=== PATIENT | female | born 1940 | race Caucasian/White ===

== ENCOUNTER 2016-11-06 08:18 | Emergency (ER) | payer OTHER ==
[~2016-11-06] VITALS: Ht 157.5 cm; Wt 78.0 kg
[~2016-11-06 08:18] MED LIST: 1-ME1LIQ PO; LEVO100T60 PO; LOVA40TA PO; TEMA15 PO
[2016-11-06 08:25] VITALS: BP 139/87; PULSE 70; RESP 16; TEMP 98.5; O2SAT 95
[2016-11-06] MEDS ORDERED: VITA10007 PO (08:50)
[2016-11-06] MEDS ORDERED: TIZA2CAP3 PO (08:50)
[2016-11-06] MEDS ORDERED: VITA400C2 PO (08:50)
[2016-11-06] MEDS ORDERED: LEVO100T5 PO (08:50)
[2016-11-06] MEDS ORDERED: LISI10TA3 PO (08:50)
[2016-11-06] MEDS ORDERED: OMEG100037 PO (08:50)
[2016-11-06] MEDS ORDERED: VITATAB11 PO (08:50)
[2016-11-06] MEDS ORDERED: BIOT1SUB SL (08:50)
[2016-11-06] MEDS ORDERED: VITA2000 PO (08:50)
[2016-11-06] MEDS ORDERED: OMEG100010 PO (08:50)
[2016-11-06] MEDS ORDERED: KETOROLAC TROMETHAMINE 60 MG/2 ML (IM) VIAL IM ONE (09:00)
--- NOTE | 2016-11-06 09:17 | PD ---
HPI Chief Complaint: Pain: Acute or Chronic Time Seen by Provider: 08:47 Travel History International Travel<30 days: No Contact w/Intl Traveler<30days: No Traveled to known affect area: No History of Present Illness HPI 76-year-old female presents with one-month history of joint pain. She states she had pain first on her right elbow than her left hand then her right shoulder and the pain is difficult to control. She states her primary care physician wrote her a muscle relaxant but it is not helping. She states she is not taking anything else currently for the pain. She states she has no issues with GI bleeding or ulcers that she is aware of. Quality of pain is sharp. Severity is worsening. Pain is worse with movement. She denies other modifying factors. She denies other concurrent complaints other than swelling intermittently to her left thumb. She states her primary doctor referred her to a cardiology tech and she has an appointment Friday. She states she is here for pain control. PFSH Past Medical History Arthritis: Yes (HANDS) Heart Rhythm Problems: No Cardiac Catheterization: Yes (X 2) Cardiovascular Problems: Yes (stents) High Cholesterol: Yes Chest Pain: Yes Congestive Heart Failure: No Diabetes: No Hepatitis: No Hypertension: Yes Sleep Apnea: Yes Thyroid Disease: Yes (HYPO) ?: Not Menopausal: Yes Past Surgical History Coronary Artery Bypass Graft: No Coronary Stent: Yes Genitourinary Surgery: Yes (1983 BLADDER SUSPENSION) Oral Surgery: Yes (TONSIL;) Pacemaker: No Tonsillectomy: Yes Other Surgery: Yes Social History Alcohol Use: Yes (2XWEEK) Tobacco Use: Yes (1986) Substance Use: Yes Allergies-Medications (Allergen,Severity, Reaction): Coded Allergies: No Known Allergies (Verified , 11/06/16) Reported Meds & Prescriptions Reported Meds & Active Scripts Active Reported [place] 3 1000 mg ([place]-3 Fatty Acids) 1 Cap Cap 1 Cap PO DAILY Fish Oil 1000 mg ([place]-3 Fatty Acids) 1 Cap Cap 1 Cap PO DAILY Vitamin B Complex (B-Complex Vitamins) 1 Tab 1 Tab PO DAILY Vitamin C (Ascorbic Acid) 1,000 Mg Tab 1,000 Mg PO DAILY Vitamin D3 (Cholecalciferol) 2,000 Unit Cap 2,000 Units PO DAILY Vitamin E 400 Unit Cap 400 Units PO DAILY Biotin 5,000 Mcg Subl 10,000 Mcg SL Lisinopril 10 Mg Tab 10 Mg PO DAILY Levothyroxine (Levothyroxine Sodium) 100 Mcg Tab 100 Mcg PO DAILY Tizanidine (Tizanidine HCl) 2 Mg Cap 2 Mg PO Q6HR Review of Systems Except as stated in HPI: all other systems reviewed are Neg Physical Exam Narrative GENERAL: Well-nourished, well-developed patient. SKIN: Warm and dry. HEAD: Normocephalic and atraumatic. EYES: No injection or drainage. ENT: No nasal drainage noted. NECK: Supple, trachea midline. CARDIOVASCULAR: Regular rate and rhythm RESPIRATORY: No increased effort. No accessory muscle use. EXTREMITIES:Pain with palpation of left thumb with mild swelling, mild palpation of right elbow without swelling, no pain with other joints with specific palpation , neurovascularly intact, no lacerations over, compartments soft. No specific edema NEUROLOGICAL: Awake and alert. Motor and sensory grossly within normal limits. Normal speech. Data Data Last Documented VS Vital Signs Date Time Temp Pulse Resp B/P Pulse Ox O2 Delivery O2 Flow Rate FiO2 11/06/16 08:25 98.5 70 16 139/87 95 Orders Ketorolac Inj (Toradol Inj) (11/06/16 09:00) [facility] Medical Decision Making Medical Screen Exam Complete: Yes Emergency Medical Condition: Yes Medical Record Reviewed: Yes (past history confirmed) Differential Diagnosis Rheumatoid arthritis, osteoarthritis, strain... Narrative Course Patient agrees to no further workup here given she had 6 vials of blood drawn as an outpatient recently for referral, given no trauma she agrees to imaging as an outpatient. I will provide her with an injection of Toradol here for pain control and she is happy with this and will take [id number] anti- inflammatory and Tylenol at home. Given return instructions. Diagnosis Primary Impression: Joint pain Qualified Code: M25.50 - Arthralgia, unspecified joint Patient Instructions: General Instructions Additional Instructions: alternate motrin and tylenol, return as needed, follow with cardiology tech as scheduled Med/Other Pt SpecificInfo: No Change to Meds Disposition: 01 DISCHARGE HOME Condition: Stable Adry Montes De Oca MD Nov 06, 2016 09:17
== END 2016-11-06 09:32 | disposition home or self-care (01) ==
LOC: PHED 08:18
DX: M25.50 Pain in unspecified joint (principal); E78.00 Pure hypercholesterolemia, unspecified; I10 Essential (primary) hypertension; E03.9 Hypothyroidism, unspecified
CPT/HCPCS: 96372; 99283; J1885

== ENCOUNTER → 2017-07-11 | Day surgery (SDC) | payer OTHER ==
[~2017-07-11] MED LIST changes: -1-ME1LIQ PO; +BIOT1SUB SL; +BUPIVACAINE/EPINEPHRINE 0.5% PF 10 ML VIAL ONE; +IOHEXOL 180 MG/ML 20 ML VIAL (for RAD DIAG) OTHER ONE; +KETOROLAC TROMETHAMINE 30 MG/ML (IVP) VIAL IV PUSH ONE; +LACTATED RINGER'S 1000 ML INJ 1,000 ML ONE; +LEVO100T5 PO; -LEVO100T60 PO; +LIDOCAINE 1.5%/EPINEPHrine 1:200,000 PF SOLN 30 ML AMP ONE; +LISI10TA3 PO; -LOVA40TA PO; +MIDAZOLAM HCL 2 MG/2 ML VIAL ONE; +OMEG100010 PO; +OMEG100037 PO; +ONDANSETRON HCL 4 MG/2 ML VIAL IV PUSH ONE; +PROPOFOL 500 MG/50 ML BTL IV ONE; -TEMA15 PO; +TIZA2CAP3 PO; +VITA10007 PO; +VITA2000 PO; +VITA400C2 PO; +VITATAB11 PO; +ceFAZolin 2 GM PREMIX 50 ML ONE
--- NOTE | 2017-07-11 15:09 | TN ---
cc: DELICIA ALONSO DATE OF SURGERY: 07/11/2017 PREOPERATIVE DIAGNOSIS Compression fracture T11-L5 subacute. POSTOPERATIVE DIAGNOSIS Compression fracture T11-L5, subacute. PROCEDURE Kyphoplasty of T11 and L5. SURGEON Delicia Alonso MD. ANESTHESIA TIVA. BLOOD LOSS 50 cc. INDICATION This patient is a 76-year-old female with progressive pain in her back in studies showing evidence of recent compression fractures of T11-L5. Despite conservative care the patient is painful and symptomatic. This patient presents for surgical treatment. PROCEDURE The patient brought to the operating room and given limited sedation. She was rolled to prone position. All pressure points checked in the back was scrubbed alcohol followed by Hibiclens followed Chloraprep and draped sterilely. Antibiotics were given within 1 hour time window a time-out was done. A single balloon approach utilizing left side at T11 level. A sequence of a small incision. Local anesthesia, small incision. An awl placed down through the pedicle and into the vertebral body at oblique angle. A 20 mm Kyphon balloon was placed centrally at the T11 level and elevated. Using the same type system. The same approach from the left side of L5, a single balloon was placed centrally. On the back table methacrylate was mixed and was injected both levels. We began having some cement extravasating anteriorly at T11 so it was stopped for about four minutes and then the rest of the vertebral body was filled without consequence. Overall we had a good fill both levels. The areas were irrigated, anesthetized and closed with 4-0 Vicryl followed by Dermabond. The patient was awakened and taken to the Recovery Room in satisfactory condition. Delicia Alonso MD [facility] [place]/ /2:55 PM /3:04 PM
== END | disposition home or self-care (01) ==
LOC: ESDC 12:20
PROVIDERS: ATTEND Orthopaedic Surgery Orthopaedic Surgery of the Spine
DX: S22.080A Wedge compression fracture of T11-T12 vertebra, initial encounter for closed fracture (principal); S32.050A Wedge compression fracture of fifth lumbar vertebra, initial encounter for closed fracture
CPT/HCPCS: 01936; 22513; 22515; 72070; J0690; J1885; J2250; J2405; J3010; J7120; Q9965

== ENCOUNTER 2017-08-14 12:28 | Emergency (ER) | payer OTHER ==
[~2017-08-14] VITALS: Ht 165.1 cm; Wt 77.0 kg
[~2017-08-14 12:28] MED LIST changes: -BUPIVACAINE/EPINEPHRINE 0.5% PF 10 ML VIAL ONE; -IOHEXOL 180 MG/ML 20 ML VIAL (for RAD DIAG) OTHER ONE; -KETOROLAC TROMETHAMINE 30 MG/ML (IVP) VIAL IV PUSH ONE; -LACTATED RINGER'S 1000 ML INJ 1,000 ML ONE; -LIDOCAINE 1.5%/EPINEPHrine 1:200,000 PF SOLN 30 ML AMP ONE; -MIDAZOLAM HCL 2 MG/2 ML VIAL ONE; -ONDANSETRON HCL 4 MG/2 ML VIAL IV PUSH ONE; -PROPOFOL 500 MG/50 ML BTL IV ONE; -ceFAZolin 2 GM PREMIX 50 ML ONE
[2017-08-14 12:40] VITALS: BP 147/85; PULSE 89; RESP 18; TEMP 99.4; O2SAT 96
[2017-08-14] MEDS ORDERED: OXYC1TAB63 PO (13:59)
[2017-08-14] MEDS ORDERED: ONDANSETRON ODT 4 MG TAB PO ONE (14:00)
[2017-08-14] MEDS ORDERED: MORPHINE SULFATE 4 MG/ML INJ IM ONE (14:00)
--- NOTE | 2017-08-14 14:12 | PD ---
HPI . Back pain Chief Complaint: Back/ Neck Pain or Injury Time Seen by Provider: 13:58 Travel History International Travel<30 days: No Contact w/Intl Traveler<30days: No Traveled to known affect area: No History of Present Illness HPI Patient presents with chief complaint of back pain. Onset was about a month ago. She has reportedly suffered a series of compression fractures. She states that she will have 1 or 2 repaired and will then suffer another one or 2. She states that her pain has become acutely worse since yesterday. The pain waxes and wanes. The pain is exacerbated by movement. At its maximum, the pain is very severe. It is somewhat relieved by oxycodone. She states that she presented to us here today because she was hoping to be admitted to the hospital for emergency surgery. She reports that she is scheduled for outpatient surgery on Friday which is 4 days from now. She is not having any neurological symptoms. She is not running fever. PFSH Past Medical History Arthritis: Yes (HANDS) Heart Rhythm Problems: No Cardiac Catheterization: Yes (X 2) Cardiovascular Problems: Yes (stents) High Cholesterol: Yes Chest Pain: Yes Congestive Heart Failure: No Diabetes: No Hepatitis: No Hypertension: Yes Musculoskeletal: Yes (COMPRESSION FRACTURES/CHRONIC BACK PAIN) Sleep Apnea: Yes Thyroid Disease: Yes (HYPO) Menopausal: Yes Past Surgical History Coronary Artery Bypass Graft: No Coronary Stent: Yes Genitourinary Surgery: Yes (1983 BLADDER SUSPENSION) Oral Surgery: Yes (TONSIL;) Pacemaker: No Tonsillectomy: Yes Other Surgery: Yes Social History Alcohol Use: Yes (2XWEEK) Tobacco Use: Yes (1986) Substance Use: No Allergies-Medications (Allergen,Severity, Reaction): Coded Allergies: No Known Allergies (Verified , 11/06/16) Reported Meds & Prescriptions Reported Meds & Active Scripts Active Reported Oxycodone-Acetaminophen 5-325 mg Tab 2 Tab PO Q6H PRN [place] 3 1000 mg ([place]-3 Fatty Acids) 1 Cap Cap 1 Cap PO DAILY Vitamin B Complex (B-Complex Vitamins) 1 Tab 1 Tab PO DAILY Vitamin D3 (Cholecalciferol) 2,000 Unit Cap 2,000 Units PO DAILY Lisinopril 10 Mg Tab 10 Mg PO DAILY Levothyroxine (Levothyroxine Sodium) 100 Mcg Tab 100 Mcg PO DAILY Tizanidine (Tizanidine HCl) 2 Mg Cap 2 Mg PO Q6HR Review of Systems Except as stated in HPI: all other systems reviewed are Neg General / Constitutional: No: Fever, Chills Musculoskeletal: Positive: Pain Neurologic: No: Paresthesia, Incontinence Physical Exam Narrative GENERAL: Patient is sitting in a wheelchair. She has an emesis basin in her lap. It is empty. SKIN: Warm and dry. HEAD: Normocephalic/atraumatic. EYES: Pupils are equal. Extraocular movements are intact. NECK: Supple. CARDIOVASCULAR: Regular rate and rhythm. RESPIRATORY: Nonlabored respirations. MUSCULOSKELETAL: Mid back tenderness. NEUROLOGICAL: Moving all 4 extremities equally. PSYCHIATRIC: Appropriate mood and affect. Data Data Last Documented VS Vital Signs Date Time Temp Pulse Resp B/P (MAP) Pulse Ox O2 Delivery O2 Flow Rate FiO2 08/14/17 12:40 99.4 89 18 147/85 (105) 96 Room Air Orders Orders Morphine Inj (Morphine Inj) (08/14/17 14:00) Ondansetron Odt (Zofran Odt) (08/14/17 14:00) MDM Medical Decision Making Medical Screen Exam Complete: Yes Emergency Medical Condition: Yes Differential Diagnosis Differential diagnosis includes but is not limited to muscular low back pain, DDD, spinal stenosis, epidural abscess, sciatica, kidney infection or stone. Narrative Course This patient presents with back pain. She has known compression fractures. She reports that she was hoping that she could be admitted to the hospital for emergency surgery. I have checked before my partners who agrees that this is not possible. I will treat her pain with morphine and her nausea with Zofran. She needs to check with Dr. Cramer for further recommendations. Physician Communication Physician Communication The case was discussed with Dr. Fox who is director institution for Dr. Cramer. He states that emergent surgery is not possible. Diagnosis Primary Impression: Back pain Qualified Codes: M54.6 - Pain in thoracic spine Patient Instructions: Acute Nausea and Vomiting (DC), General Instructions, Narcotic Pain Management (DC), Vertebral Compression Fracture (DC) Disposition: 01 DISCHARGE HOME Condition: Stable Jeannette Rahman MD Aug 14, 2017 14:11
== END 2017-08-14 15:39 | disposition home or self-care (01) ==
LOC: NETRI 12:28
DX: M54.6 Pain in thoracic spine (principal); M19.90 Unspecified osteoarthritis, unspecified site; E78.00 Pure hypercholesterolemia, unspecified; I10 Essential (primary) hypertension; E03.9 Hypothyroidism, unspecified; Z72.0 Tobacco use; Z79.899 Other long term (current) drug therapy
CPT/HCPCS: 96372; 99283; J2270

== ENCOUNTER 2017-08-28 16:36 | Observation (INO) | payer OTHER ==
[~2017-08-28] VITALS: Ht 152.4 cm; Wt 52.0 kg
[2017-08-28] VITALS (8 sets, daily range): BP systolic 123–209; BP diastolic 63–94; PULSE 54–73; RESP 16–20; TEMP 97.9–98.2; O2SAT 94–100
[~2017-08-28 16:36] MED LIST changes: -BIOT1SUB SL; -OMEG100037 PO; +OXYC1TAB63 PO; -VITA10007 PO; -VITA400C2 PO
--- NOTE | 2017-08-28 16:57 | PD ---
HPI Chief Complaint: Respiratory Symptoms Time Seen by Provider: 16:45 Travel History International Travel<30 days: No Contact w/Intl Traveler<30days: No Traveled to known affect area: No History of Present Illness HPI 77-year-old female with history of CAD, cardiac stent, status post kyphoplasty on 08/18/[address] Gonzalez, here for evaluation of shortness of breath and chest pain. The patient reports that the symptoms have been going on for the last 2-3 days. She is complaining of pain underneath her breast that radiates to her back. She is unable to describe the pain, however states it is getting worse, currently moderate, worse with movements, coughing, and inspiration. Patient feels short of breath at rest, worse with exertion. She denies history of cardiopulmonary disease. She quit smoking in the . No history of DVT or PE. States that she has a cough that becomes productive, however she is unable to expectorate this sputum. She denies hemoptysis. PFSH Past Medical History Hx Anticoagulant Therapy: No Arthritis: Yes (HANDS) Heart Rhythm Problems: No Cardiac Catheterization: Yes (X 2) Cardiovascular Problems: Yes (CHOL, STENT) High Cholesterol: Yes Chest Pain: Yes Congestive Heart Failure: No Diabetes: No Hepatitis: No Hypertension: Yes Musculoskeletal: Yes (COMPRESSION FRACTURES/CHRONIC BACK PAIN) Respiratory: No Sleep Apnea: Yes Thyroid Disease: Yes (HYPO) ?: Not Menopausal: Yes Past Surgical History Coronary Artery Bypass Graft: No Coronary Stent: Yes Genitourinary Surgery: Yes (1983 BLADDER SUSPENSION) Oral Surgery: Yes (TONSIL;) Pacemaker: No Tonsillectomy: Yes Other Surgery: Yes Social History Alcohol Use: Yes (2XWEEK) Tobacco Use: Yes (1986) Substance Use: No Allergies-Medications (Allergen,Severity, Reaction): Coded Allergies: No Known Allergies (Verified Adverse Reaction, Unknown, 08/28/17) Reported Meds & Prescriptions Reported Meds & Active Scripts Active Reported Alendronate (Alendronate Sodium) 70 Mg Tab 70 Mg PO Q7D Temazepam 15 Mg Cap 15 Mg PO HS PRN Rosuvastatin (Rosuvastatin Calcium) 10 Mg Tab 10 Mg PO HS Hydrochlorothiazide 12.5 Mg Cap 12.5 Mg PO DAILY Vitamin D3 (Cholecalciferol) 2,000 Unit Cap 2,000 Units PO DAILY Lisinopril 10 Mg Tab 10 Mg PO DAILY Levothyroxine (Levothyroxine Sodium) 100 Mcg Tab 88 Mcg PO DAILY Review of Systems Except as stated in HPI: all other systems reviewed are Neg Physical Exam Narrative GENERAL: Well-developed, well-nourished, comfortable, no apparent distress. SKIN: Focused skin assessment warm/dry. No rash. Well-healed surgical scar on lower lumbar spine without warmth or erythema. HEAD: Atraumatic. Normocephalic. EYES: Pupils equal and round. No scleral icterus. No injection or drainage. ENT: Mucous membranes pink and moist. NECK: Trachea midline. No JVD. CARDIOVASCULAR: Regular rate and rhythm. RESPIRATORY: No accessory muscle use. Clear to auscultation. Breath sounds equal bilaterally. GASTROINTESTINAL: Abdomen soft, non-tender, nondistended. MUSCULOSKELETAL: No obvious deformities. No clubbing. No cyanosis. No edema. NEUROLOGICAL: Awake and alert. No obvious cranial nerve deficits. Motor grossly within normal limits. Normal speech. PSYCHIATRIC: Appropriate mood and affect; insight and judgment normal. Data Data Last Documented VS Vital Signs Date Time Temp Pulse Resp B/P (MAP) Pulse Ox O2 Delivery O2 Flow Rate FiO2 08/28/17 17:31 60 16 158/85 (109) 100 Nasal Cannula 2.00 08/28/17 16:38 98.2 Orders Orders Complete Blood Count With Diff (08/28/17 16:52) Comprehensive Metabolic Panel (08/28/17 16:52) B-Type Natriuretic Peptide (08/28/17 16:52) Act Partial Throm Time (Ptt) (08/28/17 16:52) Prothrombin Time / Inr (Pt) (08/28/17 16:52) Ckmb (Isoenzyme) Profile (08/28/17 16:52) Troponin I (08/28/17 16:52) Iv Access Insert/Monitor (08/28/17 16:52) Electrocardiogram (08/28/17 16:52) Ecg Monitoring (08/28/17 16:52) Oximetry (08/28/17 16:52) Oxygen Administration (08/28/17 16:52) Ct Pulmonary Angiogram (08/28/17 16:52) Sodium Chloride 0.9% Flush (Ns Flush) (08/28/17 17:00) Aspirin Ec (Ecotrin Ec) (08/28/17 17:00) Chest, Single Ap (08/28/17 ) CKMB (08/28/17 17:30) CKMB% (08/28/17 17:30) Iohexol 350 Inj (Omnipaque 350 Inj) (08/28/17 18:40) Morphine Inj (Morphine Inj) (08/28/17 19:15) Labs Laboratory Tests Test 08/28/17 17:30 White Blood Count 9.0 TH/MM3 Red Blood Count 4.66 MIL/MM3 Hemoglobin 13.6 GM/DL Hematocrit 40.5 % Mean Corpuscular Volume 86.8 FL Mean Corpuscular Hemoglobin 29.2 PG Mean Corpuscular Hemoglobin Concent 33.6 % Red Cell Distribution Width 12.4 % Platelet Count 415 TH/MM3 Mean Platelet Volume 6.9 FL Neutrophils (%) (Auto) 59.7 % Lymphocytes (%) (Auto) 26.9 % Monocytes (%) (Auto) 9.2 % Eosinophils (%) (Auto) 3.0 % Basophils (%) (Auto) 1.2 % Neutrophils # (Auto) 5.4 TH/MM3 Lymphocytes # (Auto) 2.4 TH/MM3 Monocytes # (Auto) 0.8 TH/MM3 Eosinophils # (Auto) 0.3 TH/MM3 Basophils # (Auto) 0.1 TH/MM3 CBC Comment DIFF FINAL Differential Comment Prothrombin Time 10.5 SEC Prothromb Time International Ratio 1.0 RATIO Activated Partial Thromboplast Time 28.9 SEC Blood Urea Nitrogen 5 MG/DL Creatinine 0.65 MG/DL Random Glucose 97 MG/DL Total Protein 7.4 GM/DL Albumin 3.9 GM/DL Calcium Level 9.4 MG/DL Alkaline Phosphatase 72 U/L Aspartate Amino Transf (AST/SGOT) 19 U/L Alanine Aminotransferase (ALT/SGPT) 19 U/L Total Bilirubin 0.9 MG/DL Sodium Level 137 MEQ/L Potassium Level 3.4 MEQ/L Chloride Level 101 MEQ/L Carbon Dioxide Level 26.5 MEQ/L Anion Gap 10 MEQ/L Estimat Glomerular Filtration Rate 88 ML/MIN Total Creatine Kinase 223 U/L Creatine Kinase MB 1.6 NG/ML Creatine Kinase MB % 0.7 % Troponin I LESS THAN 0.02 NG/ML B-Type Natriuretic Peptide 25 PG/ML MDM Medical Decision Making Medical Screen Exam Complete: Yes Emergency Medical Condition: Yes Interpretation(s) EKG: Sinus bradycardia, rate 54, normal axis, normal intervals, no acute ischemic abnormality. Differential Diagnosis ACS, PE, pneumonia, pleurisy, pneumothorax, musculoskeletal pain Narrative Course Initial vital signs show blood pressure of 209/94 which improved to 158/85 without any intervention, pulse ox 99% on 2 L nasal cannula, respiratory rate of 18 breaths per minute, heart rate of 58, oral temp of 98.2F. CBC is unremarkable. CMP is unremarkable. Cardiac enzymes are negative. BNP is 25. Chest x-ray: No acute disease. CT pulmonary angiogram: CONCLUSION: 1. No pulmonary embolus. 2. Linear planar there is increased density the lower lobes bilaterally being more prominent on the left likely related to atelectasis. Coronary calcifications present. The patient was made aware of all findings. She continues to complain of chest pain under her bilateral breast as well as feeling very short of breath. Her O2 saturation is 100% on 2 L nasal cannula. Lung sounds are clear. She is mildly tachypneic. She has history of cardiac disease and is followed by Dr. Serrano. She was given a full dose of aspirin. Given ongoing symptoms she will be admitted for overnight observation to rule out ACS. Case discussed with hospitalist Dr. Osullivan who will admit the patient to her service. Diagnosis Primary Impression: Chest pain Qualified Codes: R07.9 - Chest pain, unspecified Additional Impression: Dyspnea Qualified Codes: R06.00 - Dyspnea, unspecified Admitting Information Admitting Physician Requests: Ran York MD Aug 28, 2017 16:57
[2017-08-28] MEDS ORDERED: ASPIRIN EC 325 MG TABEC PO ONE (17:00)
[2017-08-28] MEDS ORDERED: SODIUM CHLORIDE 0.9% FLUSH 10 ML FLUSH IVF PRN (17:00)
[2017-08-28] MEDS ORDERED: HYDR12.57 PO (17:12)
[2017-08-28] MEDS ORDERED: ALEN1TAB48 PO (17:12)
[2017-08-28] MEDS ORDERED: ROSU1TAB6 PO (17:12)
[2017-08-28] MEDS ORDERED: TEMA15CA PO (17:12)
[2017-08-28 17:35] LABS: AUTOMATED NEUTROPHIL # 5.4 TH/MM3 (1.8-7.7); BASOPHIL # 0.1 TH/MM3 (0-0.2); BASOPHIL % 1.2 % (0.0-2.0); EOSINOPHIL # 0.3 TH/MM3 (0-0.4); HEMATOCRIT 40.5 % (35.0-46.0); HEMO FLAGS DIFF FINAL; LYMPH % 26.9 % (9.0-44.0); LYMPHOCYTE # 2.4 TH/MM3 (1.0-4.8); MEAN CELL VOLUME 86.8 FL (80.0-100.0); MEAN CORPUSCULAR HEMOGLOBIN 29.2 PG (27.0-34.0); MEAN CORPUSCULAR HGB CONC 33.6 % (32.0-36.0); MONO % 9.2 % (0.0-8.0); NEUT % 59.7 % (16.0-70.0); PLATELET COUNT 415 TH/MM3 (150-450); RED BLOOD COUNT 4.66 MIL/MM3 (4.00-5.30); RED CELL DISTRIBUTION WIDTH 12.4 % (11.6-17.2)
[2017-08-28 17:47] LABS: CHLORIDE 101 MEQ/L (98-107); POTASSIUM 3.4 MEQ/L (3.5-5.1); SODIUM (NA) 137 MEQ/L (136-145)
[2017-08-28 17:50] LABS: ANION GAP 10 MEQ/L (5-15); BICARBONATE 26.5 MEQ/L (21.0-32.0)
[2017-08-28 17:51] LABS: BLOOD UREA NITROGEN 5 MG/DL (7-18)
[2017-08-28 17:52] LABS: APTT (PATIENT) 28.9 SEC (24.3-30.1); PROTHROMBIN TIME - PATIENT 10.5 SEC (9.8-11.6)
[2017-08-28 17:53] LABS: ALT (GPT) 19 U/L (10-53)
[2017-08-28 17:54] LABS: AST (GOT) 19 U/L (15-37); GLOMERULAR FILTRATION RATE 88 ML/MIN (>89)
[2017-08-28 17:55] LABS: TOTAL BILIRUBIN ADULT 0.9 MG/DL (0.2-1.0)
[2017-08-28 17:56] LABS: ALKALINE PHOSPHATASE 72 U/L (45-117); CREATINE KINASE 223 U/L (26-192)
[2017-08-28 18:09] LABS: CKMB 1.6 NG/ML (0.5-3.6)
[2017-08-28] MEDS ORDERED: IOHEXOL 350 MG/ML 10 ML VIAL (for RAD DIAG) IVCONTRAST ONE ×2 (18:40→21:05)
--- NOTE | 2017-08-28 18:50 | RADRPT ---
EXAM DATE/TIME: 08/28/2017 17:59 [facility] COMPARISON: CT PULMONARY ANGIOGRAM, August 28, 2017, 18:29. CHEST SINGLE AP, October 29, 2015, 21:41. INDICATIONS : Shortness of breath for 3 days. MEDICAL HISTORY : Hypertension. Coronary artery disease. SURGICAL HISTORY : Coronary stent. ENCOUNTER: Initial ACUITY: 3 days PAIN SCORE: 0/10 LOCATION: Bilateral chest FINDINGS: A single view of the chest demonstrates the lungs to be symmetrically aerated without evidence of mas s, infiltrate or effusion. The cardiomediastinal contours are unremarkable. The patient is status po st vertebroplasty at the lower thoracic spine.. CONCLUSION: No acute disease. Thompson Reyes MD on August 28, 2017 at 18:47 Board Certified Radiologist. This report was verified electronically.
--- NOTE | 2017-08-28 18:55 | RADRPT ---
EXAM DATE/TIME: 08/28/2017 18:29 [facility] COMPARISON: No previous studies available for comparison. INDICATIONS : Short of breath. Bilateral lower anterior rib pain. IV CONTRAST: 75 cc Omnipaque 350 (iohexol) IV RADIATION DOSE: 17.37 CTDIvol (mGy) MEDICAL HISTORY : Cardiovascular disease. SURGICAL HISTORY : Kyphoplasty. Coronary artery stent.Bladder suspension. ENCOUNTER: Initial ACUITY: 1 week PAIN SCALE: 10/10 LOCATION: Bilateral chest TECHNIQUE: Volumetric scanning of the chest was performed using a pulmonary embolism protocol MIP images were re constructed. Using automated exposure control and adjustment of the mA and/or kV according to patien t size, radiation dose was kept as low as reasonably achievable to obtain optimal diagnostic quality images. DICOM format image data is available electronically for review and comparison. Follow-up recommendations for detected pulmonary nodules are based at a minimum on nodule size and pa tient risk factors according to Fleischner Society Guidelines. FINDINGS: PULMONARY ARTERIES: There is planar increased density seen at the lower lobes bilaterally more prominent on the left like ly related to atelectasis or consolidation. LUNGS: There is no consolidation or pneumothorax . No concerning pulmonary nodule is visualized. PLEURAE: There is no pleural thickening or pleural effusion. MEDIASTINUM: There is good visualization of the great vessels of the middle mediastinum. No evidence of mediastin al or hilar adenopathy/mass. Coronary artery calcifications are present. MUSCULOSKELETAL: The patient is status post vertebroplasty at several levels in the lower thoracic spine. MISCELLANEOUS: The visualized upper abdominal organs demonstrate no acute abnormality. CONCLUSION: 1. No pulmonary embolus. 2. Linear planar there is increased density the lower lobes bilaterally being more prominent on the l eft likely related to atelectasis. Thompson Reyes MD on August 28, 2017 at 18:51 Board Certified Radiologist. This report was verified electronically.
[2017-08-28] MEDS ORDERED: MORPHINE SULFATE 4 MG/ML INJ IV PUSH ONE (19:15)
[2017-08-28] MEDS ORDERED: POTASSIUM CHLORIDE 25 MEQ EFFERVESCENT TAB PO ONE (19:45)
[2017-08-28] MEDS ORDERED: NALOXONE HCL 0.4 MG/ML AMP IV PUSH PRN (19:45)
[2017-08-28] MEDS ORDERED: SODIUM CHLORIDE 0.9% FLUSH 10 ML FLUSH IV FLUSH PRN (19:45)
[2017-08-28] MEDS: SODIUM CHLORIDE 0.9% FLUSH 10 ML FLUSH IV FLUSH SCH (20:33)
[2017-08-28] MEDS ORDERED: MORPHINE SULFATE 2 MG/ML INJ IV PUSH PRN (23:45)
[2017-08-29] VITALS: BP 126/66; PULSE 73; RESP 18; TEMP 98.7; O2SAT 96
[2017-08-29 01:25] LABS: CREATINE KINASE 149 U/L (26-192)
[2017-08-29 04:00] VITALS: BP 129/65; PULSE 67; RESP 18; TEMP 98.4; O2SAT 96
[2017-08-29 08:00] VITALS: BP 138/73; PULSE 56; RESP 16; TEMP 98.1; O2SAT 94
[2017-08-29] MEDS ORDERED: INFLUENZA VIRUS VACCINE (QUADRIVALENT) 0.5 ML SYR IM ONE (09:00)
[2017-08-29] MEDS ORDERED: PNEUMOCOCCAL POLYVALENT INJ 25 MCG/0.5 ML SYR IM ONE (09:00)
[2017-08-29] MEDS: SODIUM CHLORIDE 0.9% FLUSH 10 ML FLUSH IV FLUSH SCH ×2 (09:28→21:00)
[2017-08-29] MEDS: ASPIRIN 325 MG TAB PO SCH (09:28)
[2017-08-29 09:33] LABS: AUTOMATED NEUTROPHIL # 7.9 TH/MM3 (1.8-7.7); BASOPHIL % 0.4 % (0.0-2.0); EOSINOPHIL # 0.2 TH/MM3 (0-0.4); EOSINOPHIL % 2.3 % (0.0-4.0); HEMATOCRIT 43.8 % (35.0-46.0); HEMO FLAGS DIFF FINAL; LYMPH % 16.8 % (9.0-44.0); LYMPHOCYTE # 1.8 TH/MM3 (1.0-4.8); MEAN CELL VOLUME 89.4 FL (80.0-100.0); MEAN CORPUSCULAR HEMOGLOBIN 28.2 PG (27.0-34.0); MEAN CORPUSCULAR HGB CONC 31.6 % (32.0-36.0); MONO % 5.5 % (0.0-8.0); PLATELET COUNT 441 TH/MM3 (150-450); RED CELL DISTRIBUTION WIDTH 12.9 % (11.6-17.2); WHITE BLOOD COUNT 10.5 TH/MM3 (4.0-11.0)
[2017-08-29 09:54] LABS: BICARBONATE 28.5 MEQ/L (21.0-32.0)
[2017-08-29 09:55] LABS: POTASSIUM 3.6 MEQ/L (3.5-5.1)
[2017-08-29 09:58] LABS: CREATINE KINASE 33 U/L (26-192)
--- NOTE | 2017-08-29 11:29 | HHI.HP ---
[facility] Primary Care Physician No Primary Care Physician Admission Diagnosis Chest Pain, Dyspnea Diagnoses: (1) Chest pain Chief Complaint: Chest pain Travel History International Travel<30 Days: No Contact w/Intl Traveler <30 Da: No Traveled to Known Affected Are: No History of Present Illness Ms. Boston is a 77-year-old female patient with a known medical history of dyslipidemia, CAD with cardiac stent placement, HTN and who is status post kyphoplasty on 08/18/[address] Palma who presented to the ED with complaints of chest pain. Patient states that she underwent a prior surgery by Dr. Gonzalez on 07/11/17 as well as the one on 08/18/17 due to chronic back pain and compression fractures. Since she underwent the surgeries patient has continued complaint of pain with every movement. Plan is to follow up with Dr. Gonzalez in his office next week. The pain is located underneath her left breast and radiates to her back, movement, activity and inspiration make it worse, it is stabbing in nature and constant. Does admit to associated nausea, denies any vomiting, diaphoresis or shortness of breath. Patient rates her pain a 10/10. Prescribed Hydrocodone has slightly relieved the pain. Denies any recent fever, chills, headache, shortness of breath, abd pain, n/v/d or dysuria. Does follow with Dr. Serrano, cardiology, last seen a couple years ago. Last stress test was many years ago and reportedly negative. Review of Systems Constitutional: DENIES: Fever, Chills Eyes: DENIES: Blurred vision Respiratory: COMPLAINS OF: Shortness of breath, DENIES: Cough Cardiovascular: COMPLAINS OF: Chest pain, DENIES: Palpitations, Syncope Gastrointestinal: DENIES: Abdominal pain, Constipation, Diarrhea, Nausea, Vomiting Musculoskeletal: COMPLAINS OF: Back pain Psychiatric: COMPLAINS OF: Anxiety Except as stated in HPI: all other systems reviewed are Neg Past Family Social History Past Medical History CAD with stent placement. Dyslipidemia Hypertension Hypothyroidism Chronic back pain with compression fractures Past Surgical History Status post kyphoplasty 08/18/17 Coronary stent placement Bladder suspension 1983 Tonsillectomy Reported Medications Reported Meds & Active Scripts Active Reported Alendronate (Alendronate Sodium) 70 Mg Tab 70 Mg PO Q7D Temazepam 15 Mg Cap 15 Mg PO HS PRN Rosuvastatin (Rosuvastatin Calcium) 10 Mg Tab 10 Mg PO HS Hydrochlorothiazide 12.5 Mg Cap 12.5 Mg PO DAILY Vitamin D3 (Cholecalciferol) 2,000 Unit Cap 2,000 Units PO DAILY Lisinopril 10 Mg Tab 10 Mg PO DAILY Levothyroxine (Levothyroxine Sodium) 100 Mcg Tab 88 Mcg PO DAILY Allergies: Coded Allergies: No Known Allergies (Verified Adverse Reaction, Unknown, 08/28/17) Active Ordered Medications Current Medications Medications (Trade) Dose Ordered Sig/Luis Daniel Route Start Time Stop Time Status Last Admin (NS Flush) 2 ml UNSCH PRN IV FLUSH 08/28/17 19:45 (NS Flush) 2 ml BID IV FLUSH 08/28/17 21:00 08/29/17 09:28 (Narcan Inj) 0.4 mg UNSCH PRN IV PUSH 08/28/17 19:45 (Morphine Inj) 2 mg Q3H PRN IV PUSH 08/28/17 23:45 08/29/17 00:44 (Aspirin) 325 mg DAILY PO 08/29/17 09:00 08/29/17 09:28 (Bella-Colace) 2 tab DAILY PO 08/29/17 10:00 Family History Paternal medical history significant for Hodgkin's lymphoma Maternal medical history significant for breast cancer. Denies any cardiovascular history in family. Social History Denies any current tobacco use, quit in the . Denies any alcohol use. Denies any illicit drug use. Physical Exam Vital Signs Vital Signs Date Time Temp Pulse Resp B/P (MAP) Pulse Ox O2 Delivery O2 Flow Rate FiO2 08/29/17 08:00 98.1 56 16 138/73 (94) 94 08/29/17 04:00 98.4 67 18 129/65 (86) 96 08/29/17 00:00 98.7 73 18 126/66 (86) 96 08/29/17 00:00 98.7 73 18 126/66 (86) 96 08/28/17 22:00 98 Nasal Cannula 2.00 08/28/17 21:30 08/28/17 21:25 70 16 123/63 (83) 96 Room Air 08/28/17 20:20 54 16 166/86 (112) 98 Room Air 08/28/17 20:00 16 08/28/17 20:00 97.9 59 18 143/74 (97) 94 08/28/17 19:50 73 16 99 Nasal Cannula 2.00 08/28/17 19:00 73 16 163/84 (110) 99 Nasal Cannula 2.00 08/28/17 17:31 60 16 158/85 (109) 100 Nasal Cannula 2.00 08/28/17 17:08 18 100 Nasal Cannula 2.00 08/28/17 17:08 100 Nasal Cannula 2.00 08/28/17 17:05 68 16 99 Room Air 08/28/17 16:38 98.2 58 20 209/94 (132) 99 Physical Exam GENERAL: This is a well-nourished, well-developed patient, in no apparent distress at rest, complaint of pain with every movement. SKIN: No rashes, ecchymoses or lesions. Cool and dry. HEAD: Atraumatic. Normocephalic. EYES: Pupils equal round and reactive. Extraocular motions intact. No scleral icterus. No injection or drainage. ENT: Nose without bleeding, purulent drainage or septal hematoma. Throat without erythema, tonsillar hypertrophy or exudate. Uvula midline. Airway patent. NECK: Trachea midline. No JVD or lymphadenopathy. Supple, nontender, no meningeal signs. CARDIOVASCULAR: Regular rate and rhythm without murmurs, gallops, or rubs. No reproducible chest pain RESPIRATORY: Clear to auscultation. Breath sounds equal bilaterally. No wheezes , rales, or rhonchi. GASTROINTESTINAL: Abdomen soft, non-tender, nondistended. No guarding. MUSCULOSKELETAL: Extremities without clubbing, cyanosis, or edema. No joint tenderness, effusion, or edema noted. NEUROLOGICAL: Awake and alert. Cranial nerves II through XII intact. Motor and sensory grossly within normal limits. Five out of 5 muscle strength in all muscle groups. Normal speech. Laboratory Laboratory Tests Test 08/28/17 17:30 08/29/17 01:01 08/29/17 09:00 White Blood Count 9.0 10.5 Red Blood Count 4.66 4.90 Hemoglobin 13.6 13.8 Hematocrit 40.5 43.8 Mean Corpuscular Volume 86.8 89.4 Mean Corpuscular Hemoglobin 29.2 28.2 Mean Corpuscular Hemoglobin Concent 33.6 31.6 Red Cell Distribution Width 12.4 12.9 Platelet Count 415 441 Mean Platelet Volume 6.9 7.2 Neutrophils (%) (Auto) 59.7 75.0 Lymphocytes (%) (Auto) 26.9 16.8 Monocytes (%) (Auto) 9.2 5.5 Eosinophils (%) (Auto) 3.0 2.3 Basophils (%) (Auto) 1.2 0.4 Neutrophils # (Auto) 5.4 7.9 Lymphocytes # (Auto) 2.4 1.8 Monocytes # (Auto) 0.8 0.6 Eosinophils # (Auto) 0.3 0.2 Basophils # (Auto) 0.1 0.0 CBC Comment DIFF FINAL DIFF FINAL Differential Comment Prothrombin Time 10.5 Prothromb Time International Ratio 1.0 Activated Partial Thromboplast Time 28.9 Blood Urea Nitrogen 5 6 Creatinine 0.65 0.66 Random Glucose 97 138 Total Protein 7.4 Albumin 3.9 Calcium Level 9.4 9.4 Alkaline Phosphatase 72 Aspartate Amino Transf (AST/SGOT) 19 Alanine Aminotransferase (ALT/SGPT) 19 Total Bilirubin 0.9 Sodium Level 137 139 Potassium Level 3.4 3.6 Chloride Level 101 102 Carbon Dioxide Level 26.5 28.5 Anion Gap 10 9 Estimat Glomerular Filtration Rate 88 87 Total Creatine Kinase 223 149 33 Creatine Kinase MB 1.6 Creatine Kinase MB % 0.7 Troponin I LESS THAN 0.02 LESS THAN 0.02 LESS THAN 0.02 B-Type Natriuretic Peptide 25 Result Diagram: 08/29/17 0900 08/29/17 [address] Angiography 08/28/17 1652 Signed Impressions: Service Date/Time: July 18:29 - CONCLUSION: 1. No pulmonary embolus. 2. Linear planar there is increased density the lower lobes bilaterally being more prominent on the left likely related to atelectasis. Thompson Reyes MD Chest X-Ray 08/28/17 0000 Signed Impressions: Service Date/Time: July 17:59 - CONCLUSION: No acute disease. MD Nemesio Lovell VTE Risk Assessment Caprini VTE Risk Assessment: Mod/High Risk (score >= 2) Caprini Risk Assessment Model Point Value = 1 Point Value = 2 Point Value = 3 Point Value = 5 Age 41-60 Minor surgery BMI > 25 kg/m2 Swollen legs Varicose veins or History of unexplained or recurrent spontaneous Oral contraceptives or hormone replacement Sepsis (< 1 month) Serious lung disease, including pneumonia (< 1 month) Abnormal pulmonary function Acute myocardial infarction Congestive heart failure (< 1 month) History of inflammatory bowel disease Medical patient at bed rest Age 61-74 Arthroscopic surgery Major open surgery (> 45 min) Laparoscopic surgery (> 45 min) Malignancy Confined to bed (> 72 hours) Immobilizing plaster cast Central venous access Age >= 75 History of VTE Family history of VTE Factor V Leiden Prothrombin [id number] Lupus anticoagulant Anticardiolipin antibodies Elevated serum homocysteine Heparin-induced thrombocytopenia Other congenital or acquired thrombophilia Stroke (< 1 month) Elective arthroplasty Hip, pelvis, or leg fracture Acute spinal cord injury (< 1 month) Prophylaxis Regimen Total Risk Factor Score Risk Level Prophylaxis Regimen 0-1 Low Early ambulation 2 Moderate Order ONE of the following: *Sequential Compression Device (SCD) *Heparin 5000 units SQ BID 3-4 Higher Order ONE of the following medications: *Heparin 5000 units SQ TID *Enoxaparin/Lovenox 40 mg SQ daily (WT < 150 kg, CrCl > 30 mL/min) *Enoxaparin/Lovenox 30 mg SQ daily (WT < 150 kg, CrCl > 10-29 mL/min) *Enoxaparin/Lovenox 30 mg SQ BID (WT < 150 kg, CrCl > 30 mL/min) AND/OR *Sequential Compression Device (SCD) 5 or more Highest Order ONE of the following medications: *Heparin 5000 units SQ TID (Preferred with Epidurals) *Enoxaparin/Lovenox 40 mg SQ daily (WT < 150 kg, CrCl > 30 mL/min) *Enoxaparin/Lovenox 30 mg SQ daily (WT < 150 kg, CrCl > 10-29 mL/min) *Enoxaparin/Lovenox 30 mg SQ BID (WT < 150 kg, CrCl > 30 mL/min) AND *Sequential Compression Device (SCD) Assessment and Plan Problem List: (1) Chest pain ICD Code: R07.9 - Chest pain, unspecified Status: Acute Plan: Patient has been admitted to the chest pain center. Serial EKGs and serial troponins have been ordered for ruling out purposes. Troponins flat. EKG reviewed showing NSR with controlled HR, occasional PVCs. Patient will undergo a nuclear stress test to rule out any further possibility of ischemia. If unremarkable will discharge patient home with recommendations to follow up with PCP and scheduled follow up appointment with Dr. Gonzalez next week. Placed on aspirin PO daily. Will order lipid panel, follow. BMP and CBC reviewed which are essentially unremarkable. CXR reviewed showing no cardiopulmonary disease. CTA no PE. Some atelectasis likely related to postoperative. (2) Status post kyphoplasty ICD Code: Z98.890 - Other specified postprocedural states Plan: Supportive care. Control pain. Will start on Ultram. (3) Hypokalemia ICD Code: E87.6 - Hypokalemia Plan: Status post replacement. K now 3.6. Replete as needed. Problem Qualifiers (1) Chest pain: Qualified Codes: R07.9 - Chest pain, unspecified Joelle Murillo Aug 29, 2017 11:29
[2017-08-29] MEDS ORDERED: ACETAMINOPHEN/HYDROcodone 325 MG/5 MG TAB PO PRN (11:45)
[2017-08-29] MEDS ORDERED: ACETAMINOPHEN 325 MG TAB PO PRN (11:45)
[2017-08-29 12:00] VITALS: BP 170/75; PULSE 66; RESP 16; TEMP 97.9; O2SAT 96
[2017-08-29] MEDS ORDERED: REGADENOSON INJ 0.4 MG/5 ML SYR IV ONE (12:51)
[2017-08-29] MEDS: DOCUSATE SODIUM 50 MG/SENNA 8.6 MG TAB PO SCH (13:48)
[2017-08-29] MEDS: GABAPENTIN 100 MG CAP PO SCH ×2 (13:48→17:50)
--- NOTE | 2017-08-29 14:07 | RADRPT ---
EXAM DATE/TIME: 08/29/2017 12:29 [facility] COMPARISON: No previous studies available for comparison. INDICATIONS : Chest pain for 2 days. Angina. Coronary artery disease. DOSE: 25.8 mCi Tc99m Myoview at stress. 8.1 mCi Tc99m Myoview at rest. 0.4 mg Lexiscan STRESS SYMPTOMS: None. EJECTION FRACTION: > 70% MEDICAL HISTORY : Hypertension. SURGICAL HISTORY : Coronary artery stent. Back surgery. ENCOUNTER: Initial ACUITY: 2 days PAIN SCALE: 2/10 LOCATION: Bilateral chest TECHNIQUE: The patient underwent pharmacologic stress with infusion of prescribed dose. Continuous ECG tracing was monitored during stress. Gated SPECT imaging was performed after stress and conventional SPECT i maging was performed at rest. The examination was performed on a SPECT/CT scanner, both attenuation and non-corrected datasets were reviewed. FINDINGS: DISTRIBUTION: The maximum perfused segment at stress is in the anterolateral wall. PERFUSION STUDY: The pattern of perfusion at stress is within normal limits. GATED STUDY: There is intact wall motion and thickening without hypokinetic or dyskinetic segments. CONCLUSION: No reversible defects observed to suggest acute ischemia. RISK CATEGORY: Low Evan Greenberg Jr., MD on August 29, 2017 at 14:00 Board Certified Radiologist. This report was verified electronically.
[2017-08-29 14:14] LABS: HDL CHOLESTEROL 45.9 MG/DL (40.0-60.0)
--- NOTE | 2017-08-29 14:20 | TR ---
Date Performed: 08/29/2017 Time Performed: 13:01:15 DOCTOR: Cesar Payne DRUG LIST: CLINICAL HISTORY: REASON FOR TEST: REASON FOR ENDING: OBSERVATION: CONCLUSION: Lexiscan stress test was performed under standard four minute protocol. Radionuclid e was injected one minute prior to ending the test. No electrocardiographic abormalities were present to suggest ischemia. Nuclear imaging and interpretation are pending. COMMENTS:
--- NOTE | 2017-08-29 14:30 | EKG ---
Date Performed: 08/29/2017 Time Performed: 05:38:13 PTAGE: 77 years EKG: SINUS BRADYCARDIA WITH OCCASIONAL SUPRAVENTRICULAR PREMATURE COMPLEXES NONSPECIFIC T-WAVE A BNORMALITY BORDERLINE ECG PREVIOUS TRACING : 08/28/2017 22.27 Since previous tracing, no significant change noted DOCTOR: Cesar Payne Interpretating Date/Time 08/29/2017 14:28:13
--- NOTE | 2017-08-29 14:38 | EKG ---
Date Performed: 08/28/2017 Time Performed: 22:27:31 PTAGE: 77 years EKG: SINUS BRADYCARDIA BORDERLINE ECG PREVIOUS TRACING : 08/28/2017 17.13 Since previous tracing, no significant change noted DOCTOR: Cesar Payne Interpretating Date/Time 08/29/2017 14:38:01
--- NOTE | 2017-08-29 14:41 | EKG ---
Date Performed: 08/28/2017 Time Performed: 17:13:28 PTAGE: 77 years EKG: SINUS BRADYCARDIA NONSPECIFIC T-WAVE ABNORMALITY BORDERLINE ECG PREVIOUS TRACING : 10/29/2015 21.36 Since previous tracing, no significant change noted DOCTOR: Cesar Payne Interpretating Date/Time 08/29/2017 14:39:53
--- NOTE | 2017-08-29 15:18 | HHI.DCPOC ---
Discharge Care Plan Diagnosis: (1) Chest pain Your Health Problems Are: Chest Pain Goals to Promote Your Health * To prevent worsening of your condition and complications * To maintain your health at the optimal level Directions to Meet Your Goals Take your medications as prescribed Follow your dietary instruction Follow activity as directed Keep your appointments as scheduled Take your immunizations and boosters as scheduled If your symptoms worsen call your PCP, if no PCP go to Urgent Care Center or Emergency Room Smoking is Dangerous to Your Health. Avoid second hand smoke Call the 24-hour hour crisis hotline for domestic abuse at Joelle Murillo Aug 29, 2017 15:18
[2017-08-29] MEDS ORDERED: GABA100C4 PO (15:23)
[2017-08-29] MEDS ORDERED: ASPI-516 CHEW (15:23)
[2017-08-29] MEDS ORDERED: PERI PO (15:24)
[2017-08-29] MEDS ORDERED: ATOR10TA15 PO (15:28)
[2017-08-29 16:00] VITALS: BP 140/81; PULSE 81; RESP 16; TEMP 97.1; O2SAT 94
--- NOTE | 2017-08-29 17:33 | RADRPT ---
EXAM DATE/TIME: 08/29/2017 16:36 [facility] COMPARISON: No previous studies available for comparison. INDICATIONS : Abdominal pain ands distended. MEDICAL HISTORY : Hypertension. Coronary artery disease SURGICAL HISTORY : Coronary artery stent. Fusion, lumbar. ENCOUNTER: Initial ACUITY: 2 days PAIN SCORE: 6/10 LOCATION: Bilateral upper quadrant FINDINGS: There is apparent pneumatosis in the ascending and transverse colon. There is no free air. Evidence of previous kyphoplasty is noted. CONCLUSION: Probable pneumatosis. CT scan is suggested. Chang Terrell MD FACR on August 29, 2017 at 17:29 Board Certified Radiologist. This report was verified electronically.
[2017-08-29] MEDS ORDERED: DIATRIZOATE MEGLUM/DIATRIZOATE SOD 9 ML CUP PO ONE (18:30)
[2017-08-29 20:40] VITALS: BP 173/95; PULSE 66; RESP 18; TEMP 97.9; O2SAT 93
--- NOTE | 2017-08-29 21:49 | RADRPT ---
EXAM DATE/TIME: 08/29/2017 20:59 [facility] COMPARISON: No previous studies available for comparison. INDICATIONS : Abdominal pain. IV CONTRAST: 96 cc Omnipaque 350 (iohexol) IV ORAL CONTRAST: Prescribed oral contrast ingested. RADIATION DOSE: 17.68 CTDIvol (mGy) MEDICAL HISTORY : Cardiovascular disease. Hypertension. SURGICAL HISTORY : Coronary artery stent. Kyphoplasty.Bladder suspension surgery. ENCOUNTER: Initial ACUITY: 2 days PAIN SCALE: 5/10 LOCATION: Abdomen. TECHNIQUE: Volumetric scanning of the abdomen and pelvis was performed. Using automated exposure control and ad justment of the mA and/or kV according to patient size, radiation dose was kept as low as reasonably achievable to obtain optimal diagnostic quality images. DICOM format image data is available electro nically for review and comparison. FINDINGS: There is linear scarring at the lung bases. No acute findings in the liver, spleen, adrenals, kidneys or pancreas. No gallstones or biliary ductal dilatation. No free fluid in the abdomen or pelvis. Calcified small fibroid in uterus. There is colonic diverticulosis without diverticulitis. No bowel o bstruction. No acute bony abnormalities. Previous kyphoplasty at L5, L1 and in the lower thoracic spi ne. CONCLUSION: 1. No acute findings within the abdomen and pelvis. Colonic diverticulosis without diverticulitis. Ap pendix normal. 2. Postoperative kyphoplasty at multiple levels with osteopenia. Gildardo Braga MD on August 29, 2017 at 21:27 Board Certified Radiologist. This report was verified electronically.
[2017-08-30 00:58] VITALS: BP 144/98; PULSE 79; RESP 16; TEMP 98; O2SAT 98
[2017-08-30 07:50] VITALS: BP 163/97; PULSE 76; RESP 20; TEMP 96.3; O2SAT 94
[2017-08-30] MEDS: DOCUSATE SODIUM 50 MG/SENNA 8.6 MG TAB PO SCH (08:29)
[2017-08-30] MEDS: ASPIRIN 325 MG TAB PO SCH (08:29)
[2017-08-30] MEDS: GABAPENTIN 100 MG CAP PO SCH (08:29)
[2017-08-30] MEDS: SODIUM CHLORIDE 0.9% FLUSH 10 ML FLUSH IV FLUSH SCH (08:30)
--- NOTE | 2017-08-30 09:26 | HHI.PR ---
Subjective Remarks Follow up chest pain. Patient seen and examined, sitting up in bed comfortably in no apparent distress. Appears more comfortable today. Pain controlled, less severe. Has been able to get out of bed with no pain. Still complaints of constipation and tenderness to her epigastric area. Some nausea. Afebrile. Objective Vitals Vital Signs Date Time Temp Pulse Resp B/P (MAP) Pulse Ox O2 Delivery O2 Flow Rate FiO2 08/30/17 07:50 96.3 76 20 163/97 (119) 94 08/30/17 04:03 08/30/17 00:58 98.0 79 16 144/98 (113) 98 08/29/17 20:40 97.9 66 18 173/95 (121) 93 08/29/17 16:00 97.1 81 16 140/81 (100) 94 08/29/17 12:00 97.9 66 16 170/75 (106) 96 I/O 08/29/17 08/29/17 08/29/17 08/30/17 08/30/17 08/30/17 07:00 15:00 23:00 07:00 15:00 23:00 Intake Total 460 ml 59 ml 240 ml Balance 460 ml 59 ml 240 ml Intake Oral 460 ml 59 ml 240 ml # Voids 1 2 2 3 # Bowel Movements 0 0 Result Diagram: 08/29/17 0900 08/29/17 0900 Imaging Last Impressions Myocardial Perfusion Scan Nuc Med 08/29/17 0000 Signed Impressions: Service Date/Time: Tuesday, August 29, 2017 12:29 - CONCLUSION: No reversible defects observed to suggest acute ischemia. RISK CATEGORY: Low Evan Greenberg Jr., MD Abdomen/Pelvis CT 08/29/17 0000 Signed Impressions: Service Date/Time: Tuesday, August 29, 2017 20:59 - CONCLUSION: 1. No acute findings within the abdomen and pelvis. Colonic diverticulosis without diverticulitis. Appendix normal. 2. Postoperative kyphoplasty at multiple levels with osteopenia. Gildardo Braga MD Abdomen X-Ray 08/29/17 0000 Signed Impressions: Service Date/Time: Tuesday, August 29, 2017 16:36 - CONCLUSION: Probable pneumatosis. CT scan is suggested. Chang Terrell MD FACR CT Angiography 08/28/17 2082 Signed Impressions: Service Date/Time: July 18:29 - CONCLUSION: 1. No pulmonary embolus. 2. Linear planar there is increased density the lower lobes bilaterally being more prominent on the left likely related to atelectasis. Thompson Reyes MD Chest X-Ray 08/28/17 0000 Signed Impressions: Service Date/Time: July 17:59 - CONCLUSION: No acute disease. Thompson Reyes MD Objective Remarks GENERAL: This is a well-nourished, well-developed patient, in no apparent distress. SKIN: No rashes, ecchymoses or lesions. Cool and dry. HEAD: Atraumatic. Normocephalic. EYES: Pupils equal round and reactive. Extraocular motions intact. No scleral icterus. No injection or drainage. ENT: Nose without bleeding, purulent drainage or septal hematoma. Throat without erythema, tonsillar hypertrophy or exudate. Uvula midline. Airway patent. NECK: Trachea midline. No JVD or lymphadenopathy. Supple, nontender, no meningeal signs. CARDIOVASCULAR: Regular rate and rhythm without murmurs, gallops, or rubs. No reproducible chest pain. RESPIRATORY: Clear to auscultation. Breath sounds equal bilaterally. No wheezes , rales, or rhonchi. GASTROINTESTINAL: Abdomen soft, non-tender, nondistended. No guarding. MUSCULOSKELETAL: Extremities without clubbing, cyanosis, or edema. No joint tenderness, effusion, or edema noted. NEUROLOGICAL: Awake and alert. Cranial nerves II through XII intact. Motor and sensory grossly within normal limits. Five out of 5 muscle strength in all muscle groups. Normal speech. A/P Problem List: (1) Chest pain ICD Code: R07.9 - Chest pain, unspecified Status: Acute Plan: Patient has been admitted to the chest pain center. Serial EKGs and serial troponins have been ordered for ruling out purposes. Troponins flat. EKG reviewed showing NSR with controlled HR, occasional PVCs. Patient underwent a nuclear stress test which was reviewed showing an EF of 70% , with low risk and no reversible defects to suggest acute ischemia. Patient has been encouraged to follow up with PCP and scheduled follow up appointment with Dr. Gonzalez next week. Placed on aspirin PO daily. Lipid panel reviewed showing elevated triglycerides, continued on home statin. BMP and CBC reviewed which are essentially unremarkable. CXR reviewed showing no cardiopulmonary disease. CTA no PE. Some atelectasis likely related to postoperative. CT abdomen ordered for complaints of constipation and continued pain, reviewed and showing no acute findings within the abdomen and pelvis. Diverticulosis seen. Patient updated on results and encouraged to follow up. (2) Status post kyphoplasty ICD Code: Z98.890 - Other specified postprocedural states Plan: Supportive care. Control pain. [place] and Morphine IV available PRN as needed per pain scale. (3) Hypokalemia ICD Code: E87.6 - Hypokalemia Plan: Status post replacement. K now 3.6. Replete as needed. Problem Qualifiers (1) Chest pain: Qualified Codes: R07.9 - Chest pain, unspecified Joelle Murillo Aug 30, 2017 09:26
== END 2017-08-30 09:50 | disposition home or self-care (01) ==
LOC: PHED 16:36 → PHEDA 19:32 → PH3A 21:35
PROVIDERS: ADMIT Hospitalist; ATTEND Hospitalist
DX: R07.9 Chest pain, unspecified (principal); E87.6 Hypokalemia; I25.119 Atherosclerotic heart disease of native coronary artery with unspecified angina pectoris; R06.02 Shortness of breath; I20.9 Angina pectoris, unspecified; E78.5 Hyperlipidemia, unspecified; I10 Essential (primary) hypertension; M54.9 Dorsalgia, unspecified; G89.29 Other chronic pain; R11.0 Nausea; E03.9 Hypothyroidism, unspecified; I49.3 Ventricular premature depolarization; Z79.899 Other long term (current) drug therapy; R00.1 Bradycardia, unspecified; K59.00 Constipation, unspecified; E78.1 Pure hyperglyceridemia; E78.00 Pure hypercholesterolemia, unspecified; K57.30 Diverticulosis of large intestine without perforation or abscess without bleeding; G47.30 Sleep apnea, unspecified; M85.80 Other specified disorders of bone density and structure, unspecified site; M19.042 Primary osteoarthritis, left hand; M19.041 Primary osteoarthritis, right hand; F17.200 Nicotine dependence, unspecified, uncomplicated; Z95.5 Presence of coronary angioplasty implant and graft; Z98.1 Arthrodesis status; Z23 Encounter for immunization
CPT/HCPCS: 71010; 71275; 74000; 74177; 78452; 80048; 80053; 80061; 82550; 82552; 83880; 84484; 85025; 85610; 85730; 93005; 93017; 96374; 96376; 99285; A9502; G0008; G0378; J2270; J2785; Q2038; Q9963; Q9967; 90471; 90686